=== PATIENT | male | born 1950 | race Asian ===

== ENCOUNTER 2024-01-16 22:25 | Emergency (ER) | payer OTHER, SELFPAY ==
[2024-01-16 22:28] VITALS: BP 172/92
--- NOTE | 2024-01-16 22:47 | ED.MUSCINJ ---
HPI-Injury
<ALMA Rowe - Last Filed: 01/17/24 00:44>
General
Chief Complaint: Musculo-Skeletal Complaint
Source: patient and family
Exam Limitations: none
Time Seen by Provider: 01/16/24 22:34
Nursing documentation reviewed up to this point in time: agreed with
Travel History
Have you had any contact with someone who has COVID-19?: No
Do you have any symptoms of coronavirus? Fever > 100 degrees, chills, cough, shortness of breath, sore throat, loss of taste or smell, muscle aches, or headache?: No
History of Present Illness-Injury
Initial Injury comments:
73 y/o M presents to ED after fall 2 days ago. Patient reports he was closing the shop when he slipped on some water on the floor. Patient states he fell on his right side onto his wrist. Patient reports pain in his right flank, right wrist and
lower back. He is reporting the pain is currently 8/10. He also reports swelling that has worsened in the last 2 days. He took Tylenol for his pain, last taken 1 hour ago. Patient did not hit head or lose consciousness. He denies numbness, tingling,
radiation of pain, or pain with breathing.
Review of Systems
<ALMA Rowe - Last Filed: 01/17/24 00:44>
Review of Systems
Allergies reviewed?: Yes
All Other Systems: ROS reviewed and negative except as documented in HPI and ROS
Constitutional: Reports no symptoms
EENT: Reports no symptoms
Respiratory: Reports no symptoms
Cardiac: Reports no symptoms
ABD/GI: Reports no symptoms
: Reports no symptoms
Musculoskeletal: Reports joint swelling, muscle pain and edema
Skin: Reports other (swelling)
Neurological: Reports no symptoms
Endocrine: Reports no symptoms
Hematologic/Lymphatic: Reports no symptoms
Psychiatric: Reports no symptoms
Musculoskeletal Injury Exam
<ALMA Rowe - Last Filed: 01/17/24 00:44>
Musculoskeletal Injury Exam
Right Anterior Wrist:
Pain with Movement?: Moderate
Tender to palpation?: Moderate
Soft tissue swelling?: Moderate
External deformity and angulation?: None
Joint effusion?: None
Contusion?: None
Hematoma-local bleeding into tissue?: None
Range of motion: Limited
Capillary Refill: normal
Normal distal neurovascular exam?: Yes
Phy Exam
<ALMA Rowe - Last Filed: 01/17/24 00:44>
General Physical Exam
General Presentation: well appearing and no apparent distress
General age: appears stated age
General Skin: warm
General Habitus: normal
General Mental: alert
General Hydration: appears well hydrated
Cardiovascular Exam
Cardiovascular Exam: regular rate/rhythm, no edema, no gallop, no murmur and normal peripheral pulses
Pulmonary Exam
Pulmonary Exam: lungs clear and no respiratory distress
Neurological Exam
Neurological Exam: alert and oriented x3
Musculoskeletal Exam
Musculoskeletal Exam: neuro vasc intact and other (tender along volar and palmar wrist, tender along dorsal hand, moderate swelling along right wrist and dorsal right hand, tender along R flank and R ribcage )
Skin Exam
Skin Exam: erythema and redness
Injury Course
<ALMA Rowe - Last Filed: 01/17/24 00:44>
Orders/Labs/Results
Orders:
Orders
01/16/24 22:52
CR Ribs-right 3 Vw W/pa Chest* Urgent
Comment:
Reason For Exam: rib pain after fall
CR Wrist - Right Min 3 Views Urgent
Comment:
Reason For Exam: wrist pain, swelling after fall
01/16/24 22:54
Ice Pack-Treatment DIRECTED
Location: right wrist
01/16/24 23:06
Oxycodone [Roxicodone] 5 mg PO NOW STA
01/17/24 00:04
Tracy Wrist Right-Tx ONCE
01/17/24 00:05
Incentive Spirometry [Rx Incentive Spirometry] [RESP] Urgent
Frequency: q1h while awake
<Jhony Rios MD - Last Filed: 01/18/24 22:22>
Orders/Labs/Results
Orders:
Orders
01/16/24 22:52
CR Ribs-right 3 Vw W/pa Chest* Urgent
Comment:
Reason For Exam: rib pain after fall
CR Wrist - Right Min 3 Views Urgent
Comment:
Reason For Exam: wrist pain, swelling after fall
01/16/24 22:54
Ice Pack-Treatment DIRECTED
Location: right wrist
01/16/24 23:06
Oxycodone [Roxicodone] 5 mg PO NOW STA
01/17/24 00:04
Tracy Wrist Right-Tx ONCE
01/17/24 00:05
Incentive Spirometry [Rx Incentive Spirometry] [RESP] Urgent
Frequency: q1h while awake
<ALMA Rowe - Last Filed: 01/17/24 00:44>
MDM/Problems Addressed
Differential Diagnosis Includes:
Fracture
Sprain
<ALMA Rowe - Last Filed: 01/17/24 00:44>
*Critical Care Note
Total Time (30-74mins, 75-104mins- exclusive of procedures): Not Applicable
<Jhony Rios MD - Last Filed: 01/18/24 22:22>
Update Note
Update Note:
x-ray discrepancy relayed to patient and family, along with orthopaedic surgeon information for outpatient f/u.
ED Attending Note
<ALMA Rowe - Last Filed: 01/17/24 00:44>
-
Portions of this chart may have been created with voice recognition software.� Occasional wrong word or��sound alike� substitutions may have occurred due to the inherent limitations of voice recognition software.
<Jhony Rios MD - Last Filed: 01/18/24 22:22>
ED Attending Note
Patient seen and examined by attending physician: Yes
ED Attending Note:
Patient presents to ED secondary to persistent right wrist and right-sided rib pain, after slipping on wet floor sources 2 days ago. Patient has been utilizing Tylenol and Advil at home, with mild relief in symptoms. Denies any other injuries from
the fall. Denies headache. Denies neck pain. Denies loss of sensation or weakness. Denies nausea or vomiting. Denies shortness of breath.
Physical Exam
General: mild painful distress, not acutely ill. afebrile
Head: nc/at. eomi
Neck: supple. normal range of motion.
Heart: s1/s2 regular rate and rhythm, no murmur. equal radial pulses.
Lungs: no acute respiratory distress. clear bilaterally. mild tenderness to palpation over right rib# 6-8 without deformity/crepitus/swelling/erythema/ecchymosis
Abdomen: normal bowel sounds. not tender.
Neuro: alert and oriented. no focal neurological deficits
Skin: no rash
Psychiatric: well kept. interactive and cooperative
Extremities: right wrist with diffuse tenderness with ecchymosis/swelling, ROM limited due to pain. no olecranon tenderness. shoulder nontender to palpation.
X-ray: Preliminarily reviewed by myself, without any acute findings.
History and exam concerning for likely wrist sprain along with rib contusion.
Patient will be provided with universal wrist Velcro splint along with incentive spirometer. Patient also will be provided with prescription for oxycodone, to be used if pain persists despite use of Tylenol/Motrin. Constipation precautions
provided to the patient and family. Otherwise, patient is afebrile, hemodynamically stable, and neurologically intact, at time of discharge.
Discharge Plan
Departure
Patient Disposition: Home (Routine Discharge)
Date of Disposition: 01/17/24
Time of Disposition: 00:07
Patient with high blood pressure during this ER visit?: Yes
Discharge Problem:
Sprain of wrist, right, Contusion of rib
Instructions: How to Use an Incentive Spirometer, Wrist Sprain (DC), Bruised Rib (DC)
Prescriptions:
New
oxycodone 5 mg tablet
5 mg PO Q8H PRN (Reason: Pain) Qty: 10 0RF
Activity Restrictions/Additional Instructions:
As discussed, please follow-up with your primary care physician with any further concerns. In ED, x-ray did not reveal any acute fractures. Please continue to use provided wrist splint for comfort along with elevation and ice application. Your
prescription has been sent electronically to [facility] pharmacy in [place].
Interventions
Interventions:
*Risk Screen - Suicide Last Done: 01/16/24 22:28
*General Assessment Last Done: 01/16/24 23:13
*Neglect/Abuse Screening Last Done: 01/16/24 22:28
*ED COVID-19 Vaccine History Last Done: 01/16/24 23:13
*Nursing Disposition Last Done: 01/17/24 00:43
ED-Musculoskeletal Assessment Last Done: 01/16/24 23:13
ED- Neurological Assessment Last Done: 01/16/24 23:13
ED-Skin Assessment Last Done: 01/16/24 23:13
Discharge Date and Time
Discharge Date/Time: 01/17/24 00:43
[2024-01-16] MEDS: ROXICODONE 5 MG PO (23:12)
[2024-01-16 23:15] VITALS: BP 134/84
== END 2024-01-17 00:43 | disposition home or self-care (01) ==
LOC: EMR 22:25
PROVIDERS: EMERGENCY PHYSICIAN Emergency Medicine
DX: S63.501A Unspecified sprain of right wrist, initial encounter (principal); S20.219A Contusion of unspecified front wall of thorax, initial encounter; W01.0XXA Fall on same level from slipping, tripping and stumbling without subsequent striking against object, initial encounter
CPT/HCPCS: 99283; 29125; 71101; 73110